=== PATIENT | male | born 1995 | race Caucasian/White ===

== ENCOUNTER 2021-12-06 20:50 | Emergency (ER) | payer OTHER ==
[2021-12-06 23:03] VITALS: BP 158/78; PULSE 57; RESP 18; TEMP 98
[2021-12-06 23:26] LABS: Appearance,Urine Clear (Clear); Bilirubin,Urine Negative (Negative); Blood,Urine Negative (Negative); Color,Urine Light Yellow; Glucose,Urine (UA) Negative (Negative); Ketones,Urine Negative (Negative); Leukocyte Esterase,Urine Negative (Negative); Nitrite,Urine Negative (Negative); PH, Urine 5.5 (5.0-8.0); Protein,Urine Negative (Negative); Specific Gravity,Urine 1.017 (1.001-1.035); Urobilinogen,Urine <2.0 mg/dL (<2.0)
--- NOTE | 2021-12-06 23:43 | US ---
EXAMINATION TYPE: US scrotum with doppler. Grayscale and color Doppler Duplex imaging performed of t hilary scrotum. DATE OF EXAM: 12/06/2021 COMPARISON: NONE CLINICAL HISTORY: right testicle pain.. Right testicular pain x 1 day EXAM MEASUREMENTS: TESTICLES: Right Testicle: 4.1 x 2.0 x 2.7 cm Left Testicle: 4.2 x 1.8 x 2.4 cm EPIDIDYMIS HEAD: Right Epididymis: 1.3 cm Left Epididymis: 1.0 cm Doppler performed to assess for testicular vascularity; good bilateral color flow and waveforms are s een. There is no evidence of testicular torsion. Presence of hydroceles: no Presence of varicoceles: no IMPRESSION: Negative exam. No evidence of testicular torsion or mass.
--- NOTE | 2021-12-07 00:20 | ED ---
General Adult HPI - General Chief complaint: Urogenital Stated complaint: Abd pain Time Seen by Provider: 12/07/21 00:10 Source: patient, RN notes reviewed, old records reviewed Mode of arrival: ambulatory - History of Present Illness Initial comments: 26-year-old male presenting for evaluation of testicular pain. This was probably left-sided pain. Patient states he has a remote history of testicular torsion and was concerned that his testicle could be twisted. He had some minimal lower abdominal pain as well. No fever. No vomiting. Pain began approximately 7 hours prior to arrival. Patient states the pain is quite minimal when lying flat. He denies any changes to his - Related Data Allergies Allergy/AdvReac Type Severity Reaction Status Date / Time No Known Allergies Allergy Verified 12/06/21 23:03 Review of Systems ROS Statement: Those systems with pertinent positive or pertinent negative responses have been documented in the HPI. ROS Other: All systems not noted in ROS Statement are negative. Past Medical History Past Medical History: No Reported History History of Any Multi-Drug Resistant Organisms: None Reported Past Surgical History: No Surgical Hx Reported Past Psychological History: No Psychological Hx Reported Smoking Status: Never smoker Past Alcohol Use History: None Reported Past Drug Use History: None Reported General Exam General appearance: alert, in no apparent distress Head exam: Present: atraumatic, normocephalic ( bowels.) Eye exam: Present: normal appearance, PERRL ENT exam: Present: normal exam Neck exam: Present: normal inspection. Absent: tenderness, meningismus Respiratory exam: Present: normal lung sounds bilaterally. Absent: respiratory distress, wheezes Cardiovascular Exam: Present: regular rate, normal rhythm GI/Abdominal exam: Present: soft. Absent: distended, guarding, hernia exam: Present: vertical testicular lie. Absent: testicular tenderness, urethral discharge, scrotal swelling Extremities exam: Present: normal inspection, normal capillary refill. Absent: pedal edema Neurological exam: Present: alert, oriented X3, CN II-XII intact. Absent: motor sensory deficit Psychiatric exam: Present: normal affect, normal mood Skin exam: Present: warm, dry, intact. Absent: cyanosis, diaphoretic Course Vital Signs 12/06/21 22:58 Temperature 98 F Pulse Rate 57 L Respiratory 18 Rate Blood Pressure 158/78 O2 Sat by Pulse 99 Oximetry Medical Decision Making - Medical Decision Making 46-year-old male with left testicular pain, remote history of testicular torsion. Patient did receive ultrasound which showed good blood flow to both te sticles. No acute findings on ultrasound. Normal urinalysis. Exam is unremarkable, normal scrotal exam without testicular tenderness or swelling. Vertical testicular lie. No hernia appreciated. Patient given strict return parameters. He will follow-up with urology as needed. He will return the emergency department with worsening or changing symptoms. - Lab Data Lab Results 12/06/21 Range/Units 23:15 Urine Color Light Yellow Urine Appearance Clear (Clear) Urine pH 5.5 (5.0-8.0) Ur Specific [place] 1.017 (1.001-1.035) Urine Protein Negative (Negative) Urine Glucose (UA) Negative (Negative) Urine Ketones Negative (Negative) Urine Blood Negative (Negative) Urine Nitrite Negative (Negative) Urine Bilirubin Negative (Negative) Urine Urobilinogen <2.0 (<2.0) mg/dL Ur Leukocyte Esterase Negative (Negative) Disposition Clinical Impression: Testicle pain Disposition: HOME SELF-CARE Condition: Good Instructions (If sedation given, give patient instructions): Testicle Pain (ED) Is patient prescribed a controlled substance at d/c from ED?: No Referrals: None,Stated [Primary Care Provider] - 1-2 days Elijah Lee MD [STAFF PHYSICIAN] - 1-2 days Time of Disposition: 00:20
== END 2021-12-07 00:34 | disposition home or self-care (01) ==
LOC: EC 20:50
DX: N50.811 Right testicular pain (principal)
CPT/HCPCS: 76870; 81003; 93975; 99283